=== PATIENT | female | born 1970 | race American Indian/Alaskan Native ===

== ENCOUNTER 2020-12-25 10:15 | Outpatient (CLI) | payer OTHER ==
--- NOTE | 2020-12-25 13:33 | XRay Report ---
LEFT KNEE 4 VIEWS 1058 INDICATION: BILATERAL KNEE PAIN COMPARISON: None available. FINDINGS: No definite joint effusion is seen. No significant degenerative changes are noted. No fract ures or dislocations are seen. Minimal osteophyte formation is seen from the upper anterior tibia in the upper tubercle region. Signer Name: Jorje Mason MD Signed: 12/25/2020 1:28 PM Workstation Name: [id number]
== END 2020-12-25 10:16 | disposition home or self-care (01) ==
LOC: XRAY 10:15
PROVIDERS: ATTEND Internal Medicine
DX: M25.762 Osteophyte, left knee (principal); M25.761 Osteophyte, right knee